=== PATIENT | male | born 1955 | race Caucasian/White ===

== ENCOUNTER 2020-03-28 08:43 | Emergency (ER) | payer BC ==
[~2020-03-28] VITALS: Ht 177.8 cm; Wt 117.0 kg
--- NOTE | 2020-03-28 09:21 | NUR ---
PT AMBULATORY TO ROOM 6 W/ C/O CP STARTED YESTERDAY AT 1800. PT DENIES ANY CARDIAC HX. PT STATES PAIN WORSE W/ PALPATION. PT RESTING ON GURNEY. NADN. MONITORS APPLIED. WARM BLANKET PROVIDED.
[2020-03-28] MEDS ORDERED: MORPHINE SULFATE 4 MG/ML, 1ML ONE (09:25)
[2020-03-28] MEDS ORDERED: ONDANSETRON 2MG/ML, 2ML ONE (09:25)
[2020-03-28 09:26] LABS: BASOPHILS % (AUTO) 1 % (0-1); EOSINOPHILS % (AUTO) 3 % (1-7); LYMPHOCYTES % (AUTO) 21 % (22-44); MEAN CORPUSCULAR HEMOGLOBIN 29.3 pg (27.5-34.5); MEAN CORPUSCULAR HGB CONC 34.1 g/dL (33.2-36.2); MEAN PLATELET VOLUME 9.6 fL (7.4-10.4); MONOCYTES % (AUTO) 8 % (2-9); NEUTROPHILS % (AUTO) 67 % (42-75); PLATELET COUNT 219 x10^3/uL (130-400); RED BLOOD COUNT 5.62 x10^6/uL (4.38-5.82); RED CELL DISTRIBUTION WIDTH 14.5 % (9.4-14.8)
[2020-03-28] MEDS ORDERED: ASPIRIN 81 MG TABLET CHEW ONE (09:26)
[2020-03-28 09:28] LABS: MD NO
[2020-03-28] MEDS ORDERED: MORPHINE SULFATE 4 MG/ML, 1ML IVPush PRN (09:30)
[2020-03-28] MEDS ORDERED: PLEASE ENTER ALLERGIES MC SCH (09:30)
[2020-03-28] MEDS ORDERED: ONDANSETRON 2MG/ML, 2ML IVPush ONE (09:30)
[2020-03-28] MEDS ORDERED: ASPIRIN 81 MG TABLET CHEW PO ONE (09:30)
[2020-03-28] MEDS ORDERED: SODIUM CHLORIDE FLUSH 10ML SYR IVF ONE (09:30)
[2020-03-28 09:38] LABS: ALANINE AMINOTRANSFERASE 86 U/L (12-78); ALBUMIN 3.6 g/dL (3.4-5.0); ANION GAP 7 mmol/L (5-15); CALCIUM 8.4 mg/dL (8.5-10.1); CHLORIDE 112 mmol/L (98-107); CREATININE 1.07 mg/dL (0.7-1.3)
[2020-03-28 09:43] LABS: ALKALINE PHOSPHATASE 81 U/L (45-117); BILIRUBIN,TOTAL 0.7 mg/dL (0.2-1.0); TOTAL PROTEIN 7.9 g/dL (6.4-8.2); TROPONIN I < 0.015 ng/mL (0.000-0.045)
--- NOTE | 2020-03-28 10:16 | NUR ---
PT RESTING ON GURNEY. NADN. ROMEO.
--- NOTE | 2020-03-28 11:26 | NUR ---
PT RESTING ON GURNEY. NADN. ROMEO.
[2020-03-28 12:02] LABS: TROPONIN I < 0.015 ng/mL (0.000-0.045)
[2020-03-28 12:16] VITALS: BP 129/82
--- NOTE | 2020-03-28 12:16 | NUR ---
PT RESTING ON GURNEY. NADN. ROMEO.
== END 2020-03-28 13:01 | disposition home or self-care (01) ==
LOC: ED 10:19
DX: R07.89 Other chest pain (principal); R94.31 Abnormal electrocardiogram [ECG] [EKG]; Z90.49 Acquired absence of other specified parts of digestive tract; Z90.89 Acquired absence of other organs
CPT/HCPCS: 36415; 71045; 80053; 83690; 84484; 85025; 85379; 93005; 96374; 96375; 99285; J2270; J2405

== ENCOUNTER 2020-06-01 13:36 | Outpatient (CLI) | payer BC | END 2020-06-01 23:59 | disposition home or self-care (01) | LOC: CVU 13:36 | PROVIDERS: ATTEND Internal Medicine Cardiovascular Disease | DX: I08.2 Rheumatic disorders of both aortic and tricuspid valves (principal); R07.89 Other chest pain | CPT/HCPCS: 93306 ==